=== PATIENT | female | born 1990 | race Caucasian/White ===

== ENCOUNTER → 2017-04-06 | Outpatient (CLI) | payer OTHER, MEDICAID ==
[~2017-04-06] MED LIST: AMOXICILLIN500 M1 PO; CARISOPRODOL 3350 MG PO; CIPRO250 M1 PO; CLEOCIN HCL300 MG PO; FLEXERIL PO; HYDROCODONE-AP1 EAC6 PO; NOHOMEMEDICATIONS; NORCO 5-325 TA1 EACH PO; PENICILLIN V P500 MG PO; PRENATAL; PROTONIX40 MG PO; ROBAXIN 750 MG750 M1 PO; TRAMADOL 50 MG50 MG PO; ULTRAM 50MG TAB50 MG PO; VICODIN 5-5001 EACH PO
== END ==
LOC: M.ULTRA 14:54
DX: N63.20 Unspecified lump in the left breast, unspecified quadrant (principal)